=== PATIENT | female | born 1950 | race Caucasian/White ===

== ENCOUNTER → 2019-12-10 13:26 | Outpatient (CLI) | payer MEDICARE, SELFPAY ==
--- NOTE | 2019-12-10 | DI.MRI.S_ITS ---
PROCEDURE: MR HIP RT WO CON INDICATIONS: Pain in right hip TECHNIQUE: Noncontrast coronal T1 spin echo and STIR through the bony pelvis. Coronal and axial T2 fast spin echo with fat saturation, sagittal T1 spin echo, and oblique axial T2 fast spin echo with fat saturation through the hip. COMPARISON: None. FINDINGS: Image quality: Excellent. Bones and joints: Moderate to severe right hip joint osteoarthritic changes are seen with complete loss of joint space, extensive subchondral sclerosis and cyst formation with subchondral edema. Marginal osteophyte formation is also noted. There is no acute fracture or dislocation. No definite MR evidence of avascular necrosis. The femoral head contour is intact. Mild left hip joint osteophytic changes are seen. Degenerative disc disease in visualized lower lumbar spine is seen. Tendons and ligaments: The gluteus medius and minimus tendons appear intact, without associated muscle atrophy. The nearby proximal iliotibial band also appears intact. The iliopsoas tendon appears intact, without adjacent bursal fluid collections or evidence for impingement syndrome. The origin of the hamstring tendon is intact at the ischial tuberosity, as well as the associated sacrotuberous ligament. The straight and reflected heads of the rectus femoris muscle origin appear intact, as well as the conjoint tendon. The ligamentum teres appears intact where visualized. Labrum and cartilage: There is suggestion of extensive right hip labral tear in the absence of intra-articular contrast. Complete loss of articulating cartilage over right femoral head is seen. The alpha angle of the femur is within normal limits at less than 55 degrees. Soft tissues: Visualized muscles demonstrate normal bulk and internal signal. Quadratus femoris muscle demonstrates no internal edema to suggest ischiofemoral impingement. The proximal sciatic neurovascular bundle appears normal adjacent to the hamstring tendons. No free pelvic fluid. Bladder wall thickness is normal. Genitourinary structures and bowel loops appear normal where visualized. IMPRESSION: 1. Severe right hip joint osteoarthritis. No acute fracture or dislocation. No definite MR evidence of avascular necrosis the femoral head. Mild left hip joint osteophytes. 2. Suggestion of extensive right hip labral tear. 3. No gross right hip muscle or tendon signal abnormality is seen. Dictated by: Joni Huston M.D. on 12/10/2019 at 16:18 Approved by: Joni Huston M.D. on 12/10/2019 at 16:33
== END ==
PROVIDERS: PCP Internal Medicine; Referring Provider Orthopaedic Surgery; Visit Provider Orthopaedic Surgery
DX: M25.551 Pain in right hip (principal); M51.36 Other intervertebral disc degeneration, lumbar region; M16.11 Unilateral primary osteoarthritis, right hip
CPT/HCPCS: 73721

== ENCOUNTER → 2020-05-02 10:05 | Outpatient (CLI) | payer MEDICARE, SELFPAY ==
[2020-05-03 08:45] LABS: COVID19 Sendout Not Detected (Not Detect)
== END ==
PROVIDERS: PCP Internal Medicine; Visit Provider Physician Assistant
DX: Z01.812 Encounter for preprocedural laboratory examination (principal)
CPT/HCPCS: 87635

== ENCOUNTER → 2020-05-10 07:16 | Outpatient (CLI) | payer MEDICARE, SELFPAY ==
--- NOTE | 2020-05-10 | DI.NM.S_ITS ---
PROCEDURE: NM GITA PERF SPECT R&S PHARM Rest and pharmacological stress myocardial perfusion SPECT with gated imaging and ejection fraction RADIOPHARMACEUTICAL: 10.9 mCi Tc-99m tetrafosmin IV at rest and 24.7 mCi Tc-99m tetrafosmin IV at peak effect of pharmacological stress. [id number] was performed. INDICATIONS: LBBB TECHNIQUE: Radiopharmaceutical was injected at peak stress test, and also at rest. SPECT images were obtained. SPECT myocardial perfusion images were displayed in short axis, horizontal long axis, and vertical long axis views. Gated images were reviewed using Webroot software. COMPARISON: None. CARDIAC STRESS: A pharmacologic stress test was performed under the supervision of an attending staff, using an infusion of lexiscan 0.4mg IV X1. Hemodynamic data: There is normal blood pressure and heart rate response to pharmacologic stress. Symptoms: The patient denied anginal chest pain. Aminophylline: none EKG: Non-diagnostic ECG due to baseline LBBB; no ectopy. FINDINGS: Raw data: There is good myocardial uptake of radiotracer. No significant motion artifacts. Axxi-my-pnmzk ratio is 0.34 (normal is less than 0.38 for tetrafosmin tracer). Left ventricle function: Gated images demonstrate normal left ventricular wall thickening. No segmental wall motion abnormalities. No transient ischemic dilation; TID is 1.03 (normal less than 1.3). Left ventricle resting end diastolic volume is 60 mL. Left ventricle stress ejection fraction is 85%; normal range is above 45%. Myocardial perfusion: There is normal distribution of activity in the right and left ventricular myocardium. No fixed or reversible perfusion defects. IMPRESSION: Low risk, normal pharmaceutical nuclear stress test. 1) No perfusion evidence of ischemia or infarction. 2) Normal left ventricular size, wall motion, and systolic function (EF post stress 85%). 3) Non-diagnostic ECG due to baseline LBBB. 4) No angina during the study. 5) No prior nuclear stress test available for comparison. Dictated by: Devi Foreman MD on 05/10/2020 at 12:55 Approved by: Devi Foreman MD on 05/10/2020 at 12:57
--- NOTE | 2020-05-10 11:57 | PM.TREADMILL ---
Cardiac Stress Test Report Referral & Results Date Patient Seen: 05/10/20 Time Patient Seen: 11:57 Requesting provider: Faustino Kasper Indication: abnormal ECG Rest ECG: sinus rhythm, LBBB Procedure Note: After Lexiscan injection had minimal dyspnea; no chest discomfort No significant ST changes on ECG after Lexiscan injection; no ectopy No reversal agents needed Impression: normal Lexiscan stress test Please note: Actual ECG tracings can be found in the PACS system.
== END ==
PROVIDERS: PCP Internal Medicine; Referring Provider Internal Medicine; Visit Provider Internal Medicine
DX: R94.31 Abnormal electrocardiogram [ECG] [EKG] (principal); I44.7 Left bundle-branch block, unspecified
CPT/HCPCS: 78452; 93017; A9502; J2785

== ENCOUNTER → 2020-06-13 10:01 | Outpatient (CLI) | payer MEDICARE, SELFPAY ==
[2020-06-14 21:50] LABS: COVID19 Sendout Not Detected (Not Detect)
== END ==
PROVIDERS: PCP Internal Medicine; Visit Provider Physician Assistant
DX: Z11.59 Encounter for screening for other viral diseases (principal)
CPT/HCPCS: 87635

== ENCOUNTER 2020-06-17 12:00 | Observation (INO) | payer MEDICARE, SELFPAY ==
[2020-06-10 12:54] VITALS: BMI 26.9
[2020-06-16] VITALS (14 sets, daily range): BP systolic 136–175; BP diastolic 49–85; PULSE 70–85; RESP 14–19; TEMP 35.6–36.5; O2SAT 92–98; BMI 26.9
--- NOTE | 2020-06-16 | DI.RAD.S_ITS ---
PROCEDURE: XR PELVIS 1-2V INDICATIONS: TOTAL HIP TECHNIQUE: 1 view of the lower pelvis acquired. COMPARISON: None. FINDINGS: Bones: Patient is status post right hip arthroplasty, with hardware components in expected positions. The hip joint appears congruent. The visualized bony structures appear intact. Soft tissues: Overlying postoperative changes are noted. No suspicious soft tissue densities. IMPRESSION: Postsurgical changes from right total hip arthroplasty with anatomic right hip alignment. Dictated by: Joni Huston M.D. on 06/16/2020 at 13:35 Approved by: Joni Huston M.D. on 06/16/2020 at 13:36
[2020-06-16] MEDS: LACTATED RINGERS 1,000 ML 42 ML IV ×2 (10:29→13:44)
--- NOTE | 2020-06-16 11:25 | PM.PREOP ---
Pre-operative Note COVID-19 COVID-19 status: Negative Result date/Date tested (Pos, Neg/Pending): 06/14/20 Interval Note History & Physical reviewed/Exam performed by Physician: Yes Changes to H&P: No
[2020-06-16] MEDS: CEFAZOLIN 2 GM/100 ML FROZ.PIGGY IV ×2 (12:10→19:56)
[2020-06-16] MEDS: TRANEXAMIC ACID 1,000 MG VIAL 1000 MG INJ ×2 (12:43→13:33)
--- NOTE | 2020-06-16 12:54 | SUR.OPER ---
Lateral on padded OR bed. Gel axillary roll. Arms secured on padded armboard with pillow supporting top arm. Padded hip positioner braces x4 - anterior and posterior chest and pelvis. Additional gel pad used anterior pelvis. Gel pad under bottom leg from knee to foot and secured with tape over sheet.
[2020-06-16] MEDS: ROPIVACAINE 0.5% PF 5 MG/ML 20ML VIAL 60 ML INJ (13:00)
[2020-06-16] MEDS: KETOROLAC 30 MG/ML VIAL IV (13:00)
[2020-06-16] MEDS: MORPHINE 4 MG/ML INJ INJ (13:01)
--- NOTE | 2020-06-16 13:56 | P.OP_ITS ---
Operative Date/Time/Diagnoses Date of procedure: 06/16/20 Time of procedure: 13:56 Pre-op diagnosis: Right hip degenerative joint disease Post-op diagnosis: same Procedure & Clinicians Procedure: Right total hip arthroplasty (CPT code 60535 with health assistant) Same procedure as scheduled: Yes Indications: Patient is an 69-year-old female with severe right hip DJD. The patient has pain with activities and at rest, limited ambulation and activity tolerance, difficulties with ADLs, and failure of conservative treatment. We have discussed the nature of condition, treatment options, risks and benefits, and patient elects to proceed with total hip arthroplasty and gives informed consent. Surgeon: Fco Cardona [employer] Driver: Nick Sanches Anesthesia Type: General and Spinal Operative Notes Closure Type: primary Specimen(s): none sent Prosthetic devices, grafts, tissues, transplants, or devices: Acetabulum: Palumbo and Nephew R3 acetabular component size 50 mm Femoral component: Palumbo [employer] Nephew Anthology stem size 5 with high offset Femoral head: 32 mm + 0 Oxinium Estimated Blood Loss (mL): 250 Blood products transfused: none Procedure in detail: After satisfaction induction of anesthetic, and administration of IV antibiotics, the patient was positioned in the lateral decubitus position with all bony prominences well padded and pelvic position secured using a hip psychology lecturer positioning device. Right hip and lower extremity prepped and draped in the usual sterile fashion, 1st dose of intravenous tranexamic acid was administered, then a longitudinal incision was created centered over the greater trochanter and carried sharply through the skin and subcutaneous tissues down to the fascia sandy which was divided longitudinally and retracted with a Charnley retractor. External rotators visualize, cut, tagged, and retracted posteriorly, then the capsule was cut in a T-type fashion with the corners tagged and retracted. Hip was dislocated and femoral neck cut made according to preoperative templating. Acetabular retractors then placed, and the acetabular labrum and osteophytes were excised. The acetabulum was then sequentially reamed to 49 mm with an excellent circumferential ream and fit with the trial. The trial component was removed and a permanent size 50 mm Palumbo and Nephew R3 acetabular component was selected, positioned, and impacted with satisfactory position and fixation achieved. Permanent liner was then inserted with the elevated lip directed posteriorly. Soft tissue then removed off the lateral femoral neck in the lateral neck was entered using a box osteotome. T- handled reamers placed down the canal followed by sequential broaching to 5 with the final broach left in place for trial reduction which demonstrated excellent leg length, range of motion, and stability characteristics with a high offset neck, 32 mm +0 trial ball. The trial and broach were removed, and a permanent size 5 high offset Palumbo and Nephew Anthology stem was selected and inserted with excellent position and fixation achieved. Another trial reduction yielded the above characteristics so the trial ball was exchanged for a permanent 32 mm +0 Oxinium ball. The hip was irrigated and reduced and excellent leg length range of motion and stability characteristics were achieved and maintained. Periarticular tissues were infiltrated with ropivacaine, morphine, and Toradol. The hip was copiously irrigated, and the capsule repaired with #2 Ethibond, and the piriformis was repaired back to the greater trochanter with the same. Fascia sandy closed with interrupted #1 Ethibond sutures, and the subcutaneous tissues were closed in 2 layers of 0 Vicryl and 2 0 Vicryl. Skin was closed with chihco and sterile dressings applied. Second dose of tranexamic acid was administered intravenously, and the anesthetic was terminated. Complications: none Post-operative Condition: stable Disposition: PACU Plan for aftercare: Patient will be admitted to the acute care [facility], and anticipate discharge to [facility] on postop day 3 with follow-up in office in 10-14 days. Outpatient physical therapy will be arranged and patient will continue to observe posterior hip precautions. Patient will continue use of postoperative aspirin for 6 weeks for DVT prophylaxis.
[2020-06-16] MEDS: OXYCODONE IR 5 MG TABLET PO (14:28)
--- NOTE | 2020-06-16 15:00 | PC.NURSE ---
Patient arrived just prior to change of shift. Sleepy but awakes to verbal stimuli, knows why she is here and what she had done. ALEK dressing CDI to right hip, palpable pulses, just starting to be able to wiggle toes. VSS. BEd alarm activated for safety and call light within reach. Evening shift to complete admission due to timing.
[2020-06-16] MEDS: ACETAMINOPHEN 325 MG TABLET 650 MG PO ×2 (15:44→21:07)
[2020-06-16] MEDS: diphenhydrAMINE 50 MG/ML VIAL 25 MG IV ×2 (15:46→21:20)
[2020-06-16] MEDS: LACTATED RINGERS 1,000 ML 80 ML IV (16:21)
--- NOTE | 2020-06-16 20:11 | PC.NURSE ---
pt last voided at 1100, bladder scan 179cc. pt ambulated to the BSC, but unable to urinate. bed alarm active. call light in reach.
[2020-06-16] MEDS: allopurinoL 300 MG TABLET PO (21:06)
[2020-06-16] MEDS: AMLODIPINE 5 MG TABLET PO (21:06)
[2020-06-16] MEDS: GABAPENTIN 600 MG TABLET PO (21:07)
[2020-06-16] MEDS: DOCUSATE 100 MG CAPSULE PO (21:07)
[2020-06-17] VITALS (7 sets, daily range): BP systolic 115–147; BP diastolic 54–69; PULSE 68–81; RESP 14–18; TEMP 35.6–37; O2SAT 91–93
[2020-06-17] MEDS: CEFAZOLIN 2 GM/100 ML FROZ.PIGGY IV (03:57)
[2020-06-17] MEDS: IBUPROFEN 400 MG TABLET PO ×2 (04:00→12:57)
--- NOTE | 2020-06-17 04:41 | PC.NURSE ---
VSS, Patient has minimal pain this shift, offered 400mg of Ibuprofen at 0400. CMS intact. Dressing has shadow drainage. Voiding and up to bedside commode w/ 1 person assist. SCD's on, IS encouraged.
[2020-06-17] MEDS: LEVOTHYROXINE 88 MCG TABLET PO (06:21)
[2020-06-17] MEDS: ACETAMINOPHEN 325 MG TABLET 650 MG PO ×3 (09:29→21:34)
[2020-06-17] MEDS: ASPIRIN EC 81 MG TABLET PO (09:30)
[2020-06-17] MEDS: GABAPENTIN 300 MG CAPSULE PO (09:30)
[2020-06-17] MEDS: DOCUSATE 100 MG CAPSULE PO ×2 (09:30→21:35)
[2020-06-17] MEDS: ESCITALOPRAM 10 MG TABLET 20 MG PO (09:31)
[2020-06-17] MEDS: LOSARTAN 50 MG TABLET PO (09:31)
[2020-06-17] MEDS: OXYCODONE IR 5 MG TABLET PO (09:32)
--- NOTE | 2020-06-17 11:03 | PT.IIE ---
Current Diagnoses Unilateral primary osteoarthritis, right hip (06/16/20) Surgery Performed Operation Date: 06/16/20 11:45 Actual Procedures p Total Hip Arthroplasty(Right) - Fco Cardona MD Surgical History (Last Updated 06/10/20 @ 13:47 by Odalys Waite RN) History of bladder surgery (Acute) Hx of craniotomy (Acute 2012) Medical History (Last Updated 06/10/20 @ 13:47 by Odalys Waite RN) Anxiety (Acute) Bronchiectasis (Acute) Gout (Acute) HTN (hypertension) (Acute) Hypercholesteremia (Acute) Hypothyroidism (Acute) Left bundle branch block (LBBB) (Acute) Melanoma (Acute 1996) Memory loss (Acute) Mixed hypoglycemia (Acute) Neuropathy (Acute) Partial seizure (Acute 2012) Pneumonia (Acute) Pre-diabetes (Acute) 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 No known deficits. Mobility and Gait Pt is modified independent with use of SPC ~60% of the time depending on her energy and pain. Activities of Daily Living and IADL's Pt endorses difficulty donning socks and other lower body garments but has needed no assist. She is IND with showering, toileting, all IADL 's. Prior Functional Level (Other details) Pt reports no falls history within the past year. Social History Household Members none Living Arrangements House Number of Floors (Floors) Two Floors Number of Stairs To Enter/Railing? Home has level entrance. Pt is able to stay on the main level without need to access upstairs for as long as needed . Home Environment Standard Height Toilet Home Equipment Four Wheel Walker,Raised Toilet Seat w/Armrests,Shower Seat with Backrest,Hand Held Shower,Heel Wheeler,Hospital Bed Employment Status Retired Additional Social History Comment Pt lives alone in [place]. She states she has many friends but all are responsibly isolating and she does not think anyone will be able to stay with her if she discharges to home. M2 PT-IP Current Condition Start: 06/17/20 08:32 Freq: NEEDED Status: Active Protocol: Document 06/17/20 10:41 AW (Rec: 06/17/20 11:03 AW [email or web address]) Physical Therapy Current Condition Current Condition Evaluation Date 06/17/20 Treatment Diagnosis R ANGELLA with posterior approach; difficulty in walking Onset Date 06/16/20 Precautions Posterior Hip Precautions No Hip Flexion > 90 degrees,No Hip Internal Rotation,No Hip Adduction Weight Bearing Status Weight Bearing Status Weight Bear as Tolerated M3 PT-IP Subjective Start: 06/17/20 08:32 Freq: NEEDED Status: Active Protocol: Document 06/17/20 10:41 AW (Rec: 06/17/20 11:03 AW [email or web address]) Subjective Physical Therapy Visit Type Type Initial Evaluation Visit Start Time 09:31 Visit Stop Time 10:03 Total Visit Minutes 32 Physical Therapy Visit Comments Patient Comments I felt like I was going to fall this morning on the way to the toilet because my leg felt so weak. Patient Goals Pt believes SNF would be ideal discharge plan Therapy Pain Assessment Pain When Pain Assessed During Mobility Pain Present Pain Present Pain Reported Location right hip Scale Used 5/10 at rest; 8/10 during mobility Pain Behaviors Guarding,Wincing Pain Management Techniques Apply Cold,Re-positioning, Timing of Activity with Medications M4 PT-IP Mobility and Gait Start: 06/17/20 08:32 Freq: NEEDED Status: Active Protocol: Document 06/17/20 10:41 AW (Rec: 06/17/20 11:03 AW [email or web address]) PT-Bed Mobility Assessment Sit to Supine Sit to Supine Minimal Assistance,1 Person Assistance Scooting Scooting to Edge of Bed Standby Assistance PT-Transfer Assessment Sit to and From Stand Sit to and from Stand Minimal Assistance,1 Person Assistance,Use of Upper Extremities Equipment Transfer Assistive Device Gait Belt,Front Wheeled Walker Orthotic/Prosthetic Devices or Brace: No Transfers Transfer Destination Bed Transfer Technique pt ambulated with FWW Transfer Ability Level of Assist Minimal Assistance,1 Person Assistance,Use of Upper Extremities Comments Mobility Comments Pt was sitting up in the chair upon PT arrival. She had already been to the toilet with nursing. She completed sit to stand with cues for right LE placement and hip precautions min A x 1. She was able to stand with the FWW with heavy LLE weightbearing. Pt was cued for right foot placement and bilateral weightbearing which she was able to do with increased BUE weightbearing on the walker. Pt then ambulated 30 feet around the room with FWW CGA. She was relatively steady but did complain of RLE weakness. Pt turned to stand EOB and then sat. Sit to supine required min A x 1 and cues to use the non-operative leg to assist the operative leg. Pt was positioned with call light and all needs in reach, bed alarm on for safety. Gait Assessment Gait Gait Assistance Required: Contact Guard Assist,1 Person Assist Distance (Feet) 30 Able to Maintain Weight Bearing Status Yes During Gait Assistive Devices Assistive Device Gait Belt,Front Wheeled Walker Orthotic/Prosthetic Devices or Brace: No Gait Deviations General Gait Pattern Antalgic,Decreased Stride Length,Decreased Feet Clearance,Flexed Trunk,Lateral Trunk Lean,Step-to Gait Factors Limiting Gait Function Factors Limiting Gait Function Decreased Activity Tolerance, Decreased Sensation,Decreased Strength,Limited Range of Motion,Pain,Poor Balance,Poor Safety Awareness Comments Gait Comments Pt ambulated around the room with FWW CGA, requiring cues to push the walker instead of lifting it and cues for increased RLE weightbearing. Stair Climbing Assessment Comments Stair Climbing Comments Not assessed. Pt does not need to climb stairs at home. PT-Balance Assessment Sitting Balance and Reactions Static Sitting Balance Ability Normal Dynamic Sitting Balance Ability Normal Standing Balance and Reactions Static Standing Balance Ability Good Dynamic Standing Balance Ability Good Device Used FWW M5 PT-IP Objective Assessments Start: 06/17/20 08:32 Freq: NEEDED Status: Active Protocol: Document 06/17/20 10:41 AW (Rec: 06/17/20 11:03 [email or web address]) Orientation Orientation/Cognition Level of Alertness Alert Orientation Name,Day of Week,Place, Situation Language Function Ability No Deficits Noted Safety Awareness Decreased Safety Awareness Memory Description No Deficits Noted Gross Range of Motion Upper Extremity ROM Assessment Within Functional Limits Lower Extremity ROM Assessment Right Impaired Strength Upper Extremity Strength Assessment Within Functional Limits Lower Extremity Strength Assessment Right Impaired Comments Strength Comments LLE: hip 4+/5; knee 5/5; ankle 5/5 Coordination Assessment Gross Coordination Gross Coordination WNL Sensation Assessment Sensation Gross Sensation WNL M6 PT-IP Treatment Start: 06/17/20 08:32 Freq: NEEDED Status: Active Protocol: Document 06/17/20 10:41 AW (Rec: 06/17/20 11:03 AW [email or web address]) Physical Therapy Treatment Exercises Exercises Ankle Pumps,Gluteal Sets,Quad Sets,Heel Slides Education Education Provided Precautions,Weight Bearing Status,Post-Op Packet,Safety Other Treatments Other Treatment Performed Provided education on role of PT, plan of care, weightbearing status, and posterior hip precautions. Pt was left with handout detailing precautions posted on the white board. M7 PT-IP Assessment and Plan Start: 06/17/20 08:32 Freq: NEEDED Status: Active Protocol: Document 06/17/20 10:41 AW (Rec: 06/17/20 11:03 AW [email or web address]) PT Summary Assessment and Plan Potential Rehabilitation Potential Good Status of Condition at Evaluation Stable Summary Impairments Pain,ROM,Strength,Balance,Bed Mobility,Transfers,Gait, Activity Tolerance Assessment Summary Mami is a 69 yo woman seen for PT evaluation on POD1 following R ANGELLA with posterior approach. She is modified independent at baseline using a SPC ~60% of the time. She lives alone and has no one available to assist her at discharge. On evaluation, pt required min assist for bed mobility and sit to stand, CGA for short bout ambulation with FWW. She presents with antalgic gait and step-to patterning and decreased confidence in her ability to ambulate with increased RLE pain and weakness. Depending on progress, pt will likely be safe to discharge home with home health PT but may require either increased [facility]ci support or SNF to provide more assistance with mobility. PT will continue to assess and refine discharge recommendation. Pt will need FWW and tub transfer bench if going home. Goals Bed Mobility Goal Independent Transfer Goal Independent,Front Wheeled Walker Gait Goal Independent,Front Wheel Walker Gait Distance 200 Days to Meet Goals 5 Frequency of Treatment Frequency Of Treatment Twice a Day Treatment Plan Physical Therapy Treatment Plan Bed Mobility Training,Transfer Training,Gait Training, Therapeutic Exercise,Balance Retraining,Post Op Education, Discharge Planning,Hot or Cold Pack Other Recommendations and Next Treatment gait training with FWW; ther Focus ex Recommendations To Nursing Amount of Assist Needed 1 Person Assist Discharge Recommendations PT Discharge Recommendations Home with Assistance,Home Health Other Discharge Recommendations Home with assist and HH vs SNF Equipment Needed for Home Before FWW, tub transfer bench Discharge Transportation Needs at Discharge Private Vehicle,Wheelchair/ Cabulance
--- NOTE | 2020-06-17 14:03 | PT.IPTN ---
Current Diagnoses Unilateral primary osteoarthritis, right hip (06/16/20) Surgery Performed Operation Date: 06/16/20 11:45 Actual Procedures p Total Hip Arthroplasty(Right) - Fco Cardona MD Physical Therapy Treatment Note M2 PT-IP Current Condition Start: 06/17/20 08:32 Freq: NEEDED Status: Active Protocol: Document 06/17/20 10:41 AW (Rec: 06/17/20 11:03 AW [email or web address]) Physical Therapy Current Condition Current Condition Evaluation Date 06/17/20 Treatment Diagnosis R ANGELLA with posterior approach; difficulty in walking Onset Date 06/16/20 Precautions Posterior Hip Precautions No Hip Flexion > 90 degrees,No Hip Internal Rotation,No Hip Adduction Weight Bearing Status Weight Bearing Status Weight Bear as Tolerated M3 PT-IP Subjective Start: 06/17/20 08:32 Freq: NEEDED Status: Active Protocol: Document 06/17/20 13:50 AW (Rec: 06/17/20 14:03 AW [email or web address]) Subjective Physical Therapy Visit Type Type Treatment Note Visit Start Time 13:24 Visit Stop Time 13:49 Total Visit Minutes 25 Physical Therapy Visit Comments Patient Comments Pt reports pain is better controlled this PM. She felt out of it after earlier narcotic medication but is alert now. Therapy Pain Assessment Pain When Pain Assessed During Mobility Pain Present Pain Present Pain Reported Location right hip Scale Used 2/10 at rest; 4/10 during mobility Pain Management Techniques Timing of Activity with Medications M4 PT-IP Mobility and Gait Start: 06/17/20 08:32 Freq: NEEDED Status: Active Protocol: Document 06/17/20 13:50 AW (Rec: 06/17/20 14:03 AW [email or web address]) PT-Bed Mobility Assessment Sit to Supine Sit to Supine Standby Assistance Scooting Scooting to Edge of Bed Standby Assistance PT-Transfer Assessment Sit to and From Stand Sit to and from Stand Contact Guard Assistance,Use of Upper Extremities Equipment Transfer Assistive Device Gait Belt,Front Wheeled Walker Orthotic/Prosthetic Devices or Brace: No Transfers Transfer Destination Bed Transfer Technique pt ambulated with FWW Transfer Ability Level of Assist Contact Guard Assistance,Use of Upper Extremities Comments Mobility Comments Pt had returned to bed after using the toilet when PT arrived. She completed supine to sit SBA without complaint of increased pain. She stood using FWW CGA and proceeded to ambulate in the halls for a total of 120' with FWW CGA. Pt 's step pattern was improved this PM with no notable stance time differential. Pt is bearing more weight through her RLE. On return to the room , pt requested to sit on the chair. She completed stand to sit safely and without need for verbal cues. She was able to maintain posterior precautions throughout treatment session. Pt was positioned in the chair with call light and all needs in reach. Pt verbalized agreement to use the call light for all mobility needs. Gait Assessment Gait Gait Assistance Required: Contact Guard Assist,1 Person Assist Distance (Feet) 120 Able to Maintain Weight Bearing Status Yes During Gait Assistive Devices Assistive Device Gait Belt,Front Wheeled Walker Orthotic/Prosthetic Devices or Brace: No Gait Deviations General Gait Pattern Antalgic,Decreased Stride Length,Decreased Feet Clearance,Step-to Gait Factors Limiting Gait Function Factors Limiting Gait Function Decreased Activity Tolerance, Decreased Sensation,Decreased Strength,Limited Range of Motion,Pain,Poor Balance Comments Gait Comments See mobility comments for details. M5 PT-IP Objective Assessments Start: 06/17/20 08:32 Freq: NEEDED Status: Active Protocol: Document 06/17/20 10:41 AW (Rec: 06/17/20 11:03 AW [email or web address]) Orientation Orientation/Cognition Level of Alertness Alert Orientation Name,Day of Week,Place, Situation Language Function Ability No Deficits Noted Safety Awareness Decreased Safety Awareness Memory Description No Deficits Noted Gross Range of Motion Upper Extremity ROM Assessment Within Functional Limits Lower Extremity ROM Assessment Right Impaired Strength Upper Extremity Strength Assessment Within Functional Limits Lower Extremity Strength Assessment Right Impaired Comments Strength Comments LLE: hip 4+/5; knee 5/5; ankle 5/5 Coordination Assessment Gross Coordination Gross Coordination WNL Sensation Assessment Sensation Gross Sensation WNL M6 PT-IP Treatment Start: 06/17/20 08:32 Freq: NEEDED Status: Active Protocol: Document 06/17/20 13:50 AW (Rec: 06/17/20 14:03 AW [email or web address]) Physical Therapy Treatment Exercises Exercises Ankle Pumps,Gluteal Sets,Quad Sets,Heel Slides Education Education Provided Precautions,Weight Bearing Status,Safety M7 PT-IP Assessment and Plan Start: 06/17/20 08:32 Freq: NEEDED Status: Active Protocol: Document 06/17/20 13:50 AW (Rec: 06/17/20 14:03 AW [email or web address]) PT Summary Assessment and Plan Potential Rehabilitation Potential Good Status of Condition at Evaluation Stable Summary Impairments Pain,ROM,Strength,Balance,Bed Mobility,Transfers,Gait, Activity Tolerance Progress Towards Goals Progressing Toward Goals,Slow Progress - Other Assessment Summary Mami's pain was better controlled this PM and she was able to tolerate increase in activity. Her active heel slide has improved significantly. She was able to ambulate 120' with FWW CGA. Will continue to progress gait to increase pt's confidence. Having no one to help her at discharge remains a barrier, but pt will likely be able to d/c home with HH once medically stable. She would benefit from identifying friends who could check in on her a few times per day. Goals Bed Mobility Goal Independent Transfer Goal Independent,Front Wheeled Walker Gait Goal Independent,Front Wheel Walker Gait Distance 200 Days to Meet Goals 5 Frequency of Treatment Frequency Of Treatment Twice a Day Treatment Plan Physical Therapy Treatment Plan Bed Mobility Training,Transfer Training,Gait Training, Therapeutic Exercise,Balance Retraining,Post Op Education, Discharge Planning,Hot or Cold Pack Other Recommendations and Next Treatment gait training with FWW; ther Focus ex Recommendations To Nursing Amount of Assist Needed Standby Assistance Discharge Recommendations PT Discharge Recommendations Home with Assistance,Home Health Other Discharge Recommendations Home with assist and HH vs SNF Equipment Needed for Home Before FWW, tub transfer bench Discharge Transportation Needs at Discharge Private Vehicle,Wheelchair/ Cabulance
--- NOTE | 2020-06-17 15:30 | CM.IDA ---
Initial DCP Assessment Note Patient is a 69 yo female, resident of [place]. Patient is now POD#1 from right hip surgery w/ Dr Cardona PCP: Faustino Kasper Payer: [facility] ([facility]) DC order placed by Dr Cardona this morning; DC to [facility] per patient's request. Updated RN and CM Justin Miles updated Dr Cardona, DC to [facility] had not yet been secured. DC order cancelled; possibility now of DC tomorrow either SNF vs Home w/ HH According to patient, she had expected to DC to SNF and so has not arranged for any DME or assistance once home. This ACADEMIC COMPUTING DIRECTOR sent referral to Liss at [facility] today, patient is SDC/changed to obs while she is here but April has now started authorization request through patient's insurance [facility] which may auth SNF stay. According to MAO Mccarthy, patient would benefit from SNF stay but may be able to DC home w/HH if SNF auth does not come through. This ACADEMIC COMPUTING DIRECTOR following very closely. DC to [facility] tomorrow, pending auth (COVID-19 test needs updated if SNF) vs Home w/ HH and friends (?) Pao Husain, ACADEMIC COMPUTING DIRECTOR
[2020-06-17] MEDS: TRAMADOL 50 MG TABLET PO (21:34)
[2020-06-17] MEDS: allopurinoL 300 MG TABLET PO (21:34)
[2020-06-17] MEDS: GABAPENTIN 600 MG TABLET PO (21:35)
[2020-06-17] MEDS: AMLODIPINE 5 MG TABLET PO (21:35)
[2020-06-17] MEDS: polyethylene glycoL 3350 17 GM POWD.PACK PO (21:35)
--- NOTE | 2020-06-18 04:51 | PC.NURSE ---
Pt resting well most of shift, minimal c/o pain. Shadow drainage on ALEK dressing, otherwise C/D/I.
[2020-06-18] MEDS: LEVOTHYROXINE 88 MCG TABLET PO (04:56)
[2020-06-18 05:00] VITALS: BP 129/72; PULSE 78; RESP 18; TEMP 36.1; O2SAT 94
[2020-06-18] MEDS: TRAMADOL 50 MG TABLET PO ×2 (07:51→14:10)
[2020-06-18] MEDS: ACETAMINOPHEN 325 MG TABLET 650 MG PO ×2 (07:51→14:10)
[2020-06-18] MEDS: DOCUSATE 100 MG CAPSULE PO (07:51)
[2020-06-18 07:52] VITALS: BP 143/70; PULSE 79
[2020-06-18] MEDS: LOSARTAN 50 MG TABLET PO (07:52)
[2020-06-18] MEDS: ESCITALOPRAM 10 MG TABLET 20 MG PO (07:54)
[2020-06-18] MEDS: polyethylene glycoL 3350 17 GM POWD.PACK PO (07:54)
[2020-06-18] MEDS: GABAPENTIN 300 MG CAPSULE PO (07:54)
[2020-06-18] MEDS: ASPIRIN EC 81 MG TABLET PO (07:54)
[2020-06-18 08:59] VITALS: BP 138/62; PULSE 81; RESP 18; TEMP 36.6; O2SAT 96
--- NOTE | 2020-06-18 09:29 | PT.IPTN ---
Current Diagnoses Unilateral primary osteoarthritis, right hip (06/17/20) Surgery Performed Operation Date: 06/16/20 11:45 Actual Procedures p Total Hip Arthroplasty(Right) - Fco Cardona MD Physical Therapy Treatment Note M2 PT-IP Current Condition Start: 06/17/20 08:32 Freq: NEEDED Status: Active Protocol: Document 06/17/20 10:41 AW (Rec: 06/17/20 11:03 AW [email or web address]) Physical Therapy Current Condition Current Condition Evaluation Date 06/17/20 Treatment Diagnosis R ANGELLA with posterior approach; difficulty in walking Onset Date 06/16/20 Precautions Posterior Hip Precautions No Hip Flexion > 90 degrees,No Hip Internal Rotation,No Hip Adduction Weight Bearing Status Weight Bearing Status Weight Bear as Tolerated M3 PT-IP Subjective Start: 06/17/20 08:32 Freq: NEEDED Status: Active Protocol: Document 06/18/20 09:04 KS (Rec: 06/18/20 11:48 KS [email or web address]) Subjective Physical Therapy Visit Type Type Treatment Note Visit Start Time 09:04 Visit Stop Time 09:29 Total Visit Minutes 25 Number of FISHERIES DIRECTOR Visits 1 Physical Therapy Visit Comments Patient Comments Pt agreeable to work w/ therapy. Therapy Pain Assessment Pain When Pain Assessed During Mobility Pain Present Pain Present Pain Reported Location right hip Intensity 6 Scale Used Numeric (0 - 10) Description Aching,Tightness Pain Behaviors Guarding,Wincing Pain Management Techniques Re-positioning,Timing of Activity with Medications M4 PT-IP Mobility and Gait Start: 06/17/20 08:32 Freq: NEEDED Status: Active Protocol: Document 06/18/20 09:04 KS (Rec: 06/18/20 11:48 KS [id number]) PT-Bed Mobility Assessment Supine to Sit Supine to Sit Minimal Assistance,1 Person Assistance,Head of Bed Elevated Scooting Scooting to Edge of Bed Standby Assistance PT-Transfer Assessment Sit to and From Stand Sit to and from Stand Contact Guard Assistance, Minimal Assistance,Use of Upper Extremities Equipment Transfer Assistive Device Gait Belt,Front Wheeled Walker Orthotic/Prosthetic Devices or Brace: No Transfers Transfer Destination Bed,Chair Transfer Technique pt ambulated with FWW Transfer Ability Level of Assist Contact Guard Assistance, Minimal Assistance,1 Person Assistance,Use of Upper Extremities Comments Mobility Comments Pt in bed upon arrival from therapy w/ HOB elevated and able to recall precautions. Pt Min A for LE guidance sup<> sit w/ HOB elevated. Instructed pt how to use gait belt to self assist RLE. Pt SBA for scooting EOB, vues to adhere to precautions. CGA to Min A w/ cues for hand placement and sequencing for sit<>stand from bed w/ FWW. Pt then reported feelings of weakness in RLE, but was able to complete 30 sec weight shifting and marching in place . Pt then ambulated ~50 ft around room w/ FWW and CGA. Pt required cues for quad activation and equal step length. Pt reported feeling of fatigue and requested to sit down. Pt CGA and cues for stand<>sit on bed and then transferred to chair CGA w/ FWW. Pt left in chair w/ all needs in reach. Encouraged pt to perform LE strengthening while in chair and bed. Gait Assessment Gait Gait Assistance Required: Contact Guard Assist,1 Person Assist Distance (Feet) 50 Able to Maintain Weight Bearing Status Yes During Gait Assistive Devices Assistive Device Gait Belt,Front Wheeled Walker Orthotic/Prosthetic Devices or Brace: No Gait Deviations General Gait Pattern Antalgic,Decreased Stride Length,Decreased Feet Clearance,Step-to Gait Factors Limiting Gait Function Factors Limiting Gait Function Decreased Activity Tolerance, Decreased Sensation,Decreased Strength,Limited Range of Motion,Pain,Poor Balance Comments Gait Comments Please refer to mobility section for details. Stair Climbing Assessment Comments Stair Climbing Comments Not assessed. Pt does not need to climb stairs at home. PT-Balance Assessment Sitting Balance and Reactions Static Sitting Balance Ability Normal Dynamic Sitting Balance Ability Normal Standing Balance and Reactions Static Standing Balance Ability Good Dynamic Standing Balance Ability Good Device Used FWW M5 PT-IP Objective Assessments Start: 06/17/20 08:32 Freq: NEEDED Status: Active Protocol: Document 06/17/20 10:41 AW (Rec: 06/17/20 11:03 AW [email or web address]) Orientation Orientation/Cognition Level of Alertness Alert Orientation Name,Day of Week,Place, Situation Language Function Ability No Deficits Noted Safety Awareness Decreased Safety Awareness Memory Description No Deficits Noted Gross Range of Motion Upper Extremity ROM Assessment Within Functional Limits Lower Extremity ROM Assessment Right Impaired Strength Upper Extremity Strength Assessment Within Functional Limits Lower Extremity Strength Assessment Right Impaired Comments Strength Comments LLE: hip 4+/5; knee 5/5; ankle 5/5 Coordination Assessment Gross Coordination Gross Coordination WNL Sensation Assessment Sensation Gross Sensation WNL M6 PT-IP Treatment Start: 06/17/20 08:32 Freq: NEEDED Status: Active Protocol: Document 06/18/20 09:04 KS (Rec: 06/18/20 11:48 KS [id number]) Physical Therapy Treatment Exercises Exercises Ankle Pumps,Gluteal Sets,Quad Sets,Heel Slides Education Education Provided Precautions,Weight Bearing Status,Safety M7 PT-IP Assessment and Plan Start: 06/17/20 08:32 Freq: NEEDED Status: Active Protocol: Document 06/18/20 09:04 KS (Rec: 06/18/20 11:48 KS [id number]) PT Summary Assessment and Plan Potential Rehabilitation Potential Good Status of Condition at Evaluation Stable Summary Impairments Pain,ROM,Strength,Balance,Bed Mobility,Transfers,Gait, Activity Tolerance Progress Towards Goals Progressing Toward Goals,Slow Progress - Other Assessment Summary Pt continues to require CGA to Min A w/ cues for mobility and CGA for ambulation w/ FWW. Pt is limited by pain and low tolerance for activity, and reported fatigue after ~50 ft ambulation. Cues to adhere to precautions, sequencing, quad activation and equal step length needed. Pt has no assistance at home and is still requiring assist and cues w/ bed mobility and sit<> stand and may benefit from SNF to improve strength and tolerance for activity. Goals Bed Mobility Goal Independent Transfer Goal Independent,Front Wheeled Walker Gait Goal Independent,Front Wheel Walker Gait Distance 200 Days to Meet Goals 5 Frequency of Treatment Frequency Of Treatment Twice a Day Treatment Plan Physical Therapy Treatment Plan Bed Mobility Training,Transfer Training,Gait Training, Therapeutic Exercise,Balance Retraining,Post Op Education, Discharge Planning,Hot or Cold Pack Other Recommendations and Next Treatment gait training with FWW; ther Focus ex Recommendations To Nursing Amount of Assist Needed 1 Person Assist Discharge Recommendations PT Discharge Recommendations Home with Assistance,Home Health,SNF Rehab Equipment Needed for Home Before FWW, tub transfer bench Discharge Transportation Needs at Discharge Private Vehicle,Wheelchair/ Cabulance
[2020-06-18] MEDS: OXYCODONE IR 5 MG TABLET PO (10:13)
[2020-06-18 12:02] VITALS: O2SAT 96
--- NOTE | 2020-06-18 12:24 | PM.DS.1 ---
History of Present Illness History of Present Illness Date Patient Seen: 06/18/20 Chief complaint: Right Total Hip Arthroplasty *OPB* Narrative: Please see previously recorded HPI. Discharge Providers Provider Date of admission: 06/17/20 12:00 Discharge Date: 06/18/20 Primary care physician: Faustino Kasper MD Consults: 06/16/20 14:54 Consult to Discharge Planning Routine Comment: plan ecf transfer per patient Consult to Physical Therapy Evaluate & Treat Comment: Physician Instructions: post op ANGELLA protocol Consult to Respiratory Therapy Evaluate & Treat Comment: Physician Instructions: Evaluate and treat Discharge provider: Janice Dubon PA-C Summary Hospital Course Discharge Diagnosis: s/p right ANGELLA Hospital Course: Patient is an 69-year-old female with severe right hip DJD. The patient has pain with activities and at rest, limited ambulation and activity tolerance, difficulties with ADLs, and failure of conservative treatment. We have discussed the nature of condition, treatment options, risks and benefits, and patient elects to proceed with total hip arthroplasty and gives informed consent. After obtaining informed consent patient was taken to the operating room where she underwent a right ANGELLA with Dr. Cardona which she tolerated well without complications. She was transferred to the acute care floor where she has been slowly progressing postoperatively. Pain has been controlled with Oxycodone. She has mobilized somewhat slowly with PT and has no social support. Due to these factors she is medically stable for discharge to SNF later today. Status at Discharge Cognitive/behavioral status at discharge: oriented Functional status at discharge: uses cane/walker (CGA for ambulation and transfers) Exam Vital Signs (past 8 hours): - 06/18/20 05:00 06/18/20 07:52 06/18/20 08:59 Temperature 97.0 F L 98 F Pulse Rate 78 79 81 Respiratory Rate 18 18 Blood Pressure 129/72 143/70 H 138/62 Pulse Oximetry 94 96 06/18/20 12:02 Temperature Pulse Rate Respiratory Rate Blood Pressure Pulse Oximetry 96 Oxygen Delivery Method Room Air Oxygen Flow Rate 0 Narrative Exam Narrative: 69 year old female resting in bed. Alert and oriented in no acute distress. ALEK dressing in place is intact and operating. Small scattered drainage that appears old. Neurovascularly intact in distal extremity. Discharge Plan Discharge Plan Patient Disposition: SNF Transfer to: [facility] Under care of provider: primary I certify the postop hospital detention care is medically necessary on a continuing basis for any conditions for which he/ she received care during this hospitalization.: Yes The receiving facility has agreed to accept transfer and provide medical treatment.: Yes Discharge orders & Medications Prescriptions: New oxycodone 5 mg Tablet 5 mg PO Q3HR PRN (Reason: Pain, Moderate (4-6)) Qty: 30 RF: 0 tramadol 50 mg Tablet 50 mg PO QID PRN (Reason: Pain, Moderate (4-6)) Qty: 40 RF: 0 Continued losartan 50 mg Tablet 50 mg PO DAILY RF: 0 ibuprofen 200 mg Capsule 400 mg PO DAILY PRN (Reason: Pain) RF: 0 amlodipine 5 mg Tablet 5 mg PO BEDTIME RF: 0 gabapentin 300 mg Capsule 300 mg PO SEEINSTR RF: 0 allopurinol 300 mg Tablet 300 mg PO BEDTIME RF: 0 escitalopram oxalate 20 mg Tablet 20 mg PO DAILY RF: 0 levothyroxine 88 mcg Capsule 88 mcg PO DAILY RF: 0 aspirin 81 mg Tablet,Delayed Release (Dr/Ec) 81 mg PO DAILY RF: 0 Follow up/Referrals: Faustino Kasper MD [Primary Care Provider] - Fco Cardona MD [Physician] - Discharge Health Status Multidrug resistant organism: No MDRO Diet/Activity/Treatments Diet: Diet as Tolerated Liquid consistency: Normal/Thin Food texture: Regular Activity: ambulate prn, posterior hip precautions Skin/Wound/Dressing Care Report to your healthcare provider any signs of infection, such as:: chills, fever, night sweats, unusual drainage and unusual redness Dressing: dry and intact [facility] Reason for rehabilitation: Post-operative therapy Rehab type: Physical therapy and Occupational therapy Visit Report/Discharge Packet Instructions: DI for Hip Replacement, Oxycodone, Tramadol Discharge Data Primary Care Provider: Faustino Kasper Attending Provider: Fco Cardona Admit Date/Time: 06/17/20 12:00
[2020-06-18 12:37] VITALS: PULSE 78; RESP 15; O2SAT 93
[2020-06-18 12:40] VITALS: BP 113/51; PULSE 89; RESP 20; TEMP 37.7; O2SAT 93
--- NOTE | 2020-06-18 13:45 | CM.DPC ---
DCP cont: Faxed signed med list, PASSR and discharge summary to [facility] at fax # [phone]. Fax confirmation scanned in. Carol Au, Ness Loan Officer
[2020-06-18 13:51] LABS: COVID19 -Nasal RAPID Negative (Negative)
--- NOTE | 2020-06-18 14:20 | PC.NURSE ---
PATIENT PREFERS TRAMADOL AND TYLENOL FOR PAIN CONTROL. GIVEN 1/2 TAB OXYCODONE FOR 2.5MG X1 FOR BREAKTHROUGH PAIN WITH GOOD RELIEF. REPORT GIVEN TO SARAH AT [facility]. ALL QUESTIONS ANSWERED TO SATISFACTION.
--- NOTE | 2020-06-18 15:31 | CM.DPNOTE ---
DC Note According to Liss at [facility]; patient's [facility] has authorized a SNF stay. April can accept patient today for admission. Updated patient and she was thrilled. Then placed call to [facility]ford who had signed the med list, updated DC order, and provided physical Rx, along w/ Dr Cardona (from yesterday) Senior It Business Analyst Carol assisted in this coordination, faxed all DC ppk including completed PASRR. w/c p/u was arranged for 1530 P: DC to [facility] via w/c today, SNF auth now in place JW
== END 2020-06-18 15:35 ==
LOC: OR 06-18 09:43 → AC 06-18 09:43
PROVIDERS: Admitting Provider Orthopaedic Surgery; PCP Internal Medicine; Referring Provider Internal Medicine; Visit Provider Orthopaedic Surgery
PROC: 0SR90JZ Replacement of Right Hip Joint with Synthetic Substitute, Open Approach (ICD-10-PCS; CPT 27130; principal; 2020-06-16 11:45)
DX: M16.11 Unilateral primary osteoarthritis, right hip (principal); Z11.59 Encounter for screening for other viral diseases; I10 Essential (primary) hypertension; E78.5 Hyperlipidemia, unspecified; E03.9 Hypothyroidism, unspecified; G25.81 Restless legs syndrome; G62.9 Polyneuropathy, unspecified
CPT/HCPCS: 27130; 72170; 87635; 97110; 97116; 97161; 97530; C1776; G0378; J0690; J1100; J1200; J1885; J2250; J2270; J2274; J2405; J2704; J3010

== ENCOUNTER → 2023-11-01 10:31 | Outpatient (CLI) | payer MEDICARE, SELFPAY ==
[2020-06-16 15:44] VITALS: BMI 26.9
--- NOTE | 2023-11-01 10:34 | DI.RAD.S_ITS ---
PROCEDURE: XR CHEST 2V INDICATIONS: Shortness of Breath TECHNIQUE: 2 views of the chest were acquired. COMPARISON: None. FINDINGS: Surgical changes and devices: None. Lungs and pleura: Lungs are clear. No pleural effusions or pneumothorax. Mediastinum: Mediastinal contours are normal. Heart size is normal. Bones and chest wall: No suspicious bony abnormalities. Soft tissues appear unremarkable. Mild multilevel degenerative changes of the spine. IMPRESSION: No acute cardiopulmonary process. Dictated by: Sandra Lima M.D. on 11/01/2023 at 10:48 Approved by: Sandra Lima M.D. on 11/01/2023 at 10:50
== END ==
PROVIDERS: PCP Internal Medicine; Referring Provider Internal Medicine Critical Care Medicine; Visit Provider Internal Medicine Critical Care Medicine
DX: J18.9 Pneumonia, unspecified organism (principal); J47.9 Bronchiectasis, uncomplicated; R06.02 Shortness of breath
CPT/HCPCS: 71046; 99214